=== PATIENT | male | born 1965 | race Caucasian/White ===

== ENCOUNTER 2017-03-01 11:48 | Emergency (ER) | payer OTHER ==
[~2017-03-01] VITALS: Ht 180.3 cm; Wt 81.7 kg
[~2017-03-01 11:48] MED LIST: DRON5 PO; HYDACE5 PO; HYDMOR4 PO; MORP50ER PO; NAPR500 PO; ONDA8ODT MM; PANT40 PO; POLY17UD PO; PREG150 PO; PROM25 PO
[2017-03-01 12:18] LABS: BASOPHILS ABSOLUTE AUTO 0.03 K/mm3 (0.00-0.23); BASOPHILS PERCENT AUTO 0 % (0-2); EOSINOPHILS ABSOLUTE AUTO 0.12 K/mm3 (0.00-0.68); EOSINOPHILS PERCENT AUTO 1 % (0-6); Hematocrit 38.3 % (37.0-53.0); Hemoglobin 13.1 g/dL (13.5-17.5); IMMATURE GRAN ABSOLUTE AUTO 0.07 K/mm3 (0.00-0.10); IMMATURE GRAN PERCENT AUTO 1 % (0-1); LYMPHOCYTES ABSOLUTE AUTO 2.45 K/mm3 (0.84-5.20); LYMPHOCYTES PERCENT AUTO 24 % (21-46); MONOCYTES ABSOLUTE AUTO 0.55 K/mm3 (0.16-1.47); MONOCYTES PERCENT AUTO 5 % (4-13); Mean Corpuscular HGB 31.3 pg (26.0-34.0); Mean Corpuscular HGB Conc 34.2 g/dL (31.5-36.5); Mean Corpuscular Volume 91 fL (80-100); NEUTROPHILS ABSOLUTE AUTO 6.93 K/mm3 (1.96-9.15); NEUTROPHILS PERCENT AUTO 68 % (41-73); Platelet Count 326 K/mm3 (150-400); RDW Coefficient Variation 13.6 % (11.7-14.2); RDW Standard Deviation 45.3 fL (35.1-46.3); Red Blood Cell Count 4.19 M/mm3 (4.30-5.90); White Blood Cell Count 10.15 K/mm3 (4.00-11.30)
[2017-03-01 12:40] LABS: Alanine Aminotransfer (ALT/SGP 31 U/L (12-78); Albumin, Blood 3.7 g/dL (3.4-5.0); Albumin/Globulin Ratio 1.1 (0.8-1.8); Alk Phos 100 U/L (50-136); Anion Gap 7 mmol/L (6-16); Aspartate Aminotrans (AST/SGOT 23 U/L (12-37); Bilirubin, Total 0.2 mg/dL (0.1-1.0); Blood Urea Nitrogen 19 mg/dL (8-24); Bun/Creatinine Ratio 27.7 (12.0-20.0); CO2, Blood 24 mmol/L (21-32); Calcium, Blood 8.7 mg/dL (8.5-10.1); Chloride, Blood 107 mmol/L (98-108); Creatinine, Blood 0.69 mg/dL (0.60-1.20); Globulin, Blood 3.4 g/dL (2.2-4.0); Glomerular Filtration Rate >60 (60-); Glucose, Blood 102 mg/dL (70-99); Potassium, Blood 3.8 mmol/L (3.5-5.5); Sodium, Blood 138 mmol/L (136-145); Total Protein, Blood 7.1 g/dL (6.4-8.2); Troponin I <0.015 ng/mL (0.000-0.040)
[2017-09-30] MEDS ORDERED: Omeprazole20 M1 PO (10:46)
== END 2017-03-01 14:52 | disposition home or self-care (01) ==
LOC: ER 11:48
PROVIDERS: Physician Assistant
DX: R07.2 Precordial pain (principal); F17.200 Nicotine dependence, unspecified, uncomplicated
CPT/HCPCS: 71046; 80053; 84484; 85025; 93005; 93010; 96374; 96375; 99284; J2270; J2405

== ENCOUNTER → 2017-03-03 | Outpatient (CLI) | payer OTHER ==
[~2017-03-03] MED LIST changes: +Omeprazole20 M1 PO
[2017-03-03 20:35] LABS: BASOPHILS ABSOLUTE AUTO 0.02 K/mm3 (0.00-0.23); BASOPHILS PERCENT AUTO 0 % (0-2); EOSINOPHILS ABSOLUTE AUTO 0.21 K/mm3 (0.00-0.68); EOSINOPHILS PERCENT AUTO 3 % (0-6); Hematocrit 40.4 % (37.0-53.0); Hemoglobin 13.8 g/dL (13.5-17.5); IMMATURE GRAN ABSOLUTE AUTO 0.06 K/mm3 (0.00-0.10); IMMATURE GRAN PERCENT AUTO 1 % (0-1); LYMPHOCYTES ABSOLUTE AUTO 2.39 K/mm3 (0.84-5.20); LYMPHOCYTES PERCENT AUTO 38 % (21-46); MONOCYTES ABSOLUTE AUTO 0.43 K/mm3 (0.16-1.47); MONOCYTES PERCENT AUTO 7 % (4-13); Mean Corpuscular HGB 31.4 pg (26.0-34.0); Mean Corpuscular HGB Conc 34.2 g/dL (31.5-36.5); Mean Corpuscular Volume 92 fL (80-100); Mean Platelet Volume 9.3 fL (9.1-12.4); NEUTROPHILS ABSOLUTE AUTO 3.14 K/mm3 (1.96-9.15); NEUTROPHILS PERCENT AUTO 50 % (41-73); Platelet Count 350 K/mm3 (150-400); RDW Coefficient Variation 13.8 % (11.7-14.2); RDW Standard Deviation 46.4 fL (35.1-46.3); White Blood Cell Count 6.25 K/mm3 (4.00-11.30)
[2017-03-03 21:22] LABS: Alanine Aminotransfer (ALT/SGP 35 U/L (12-78); Albumin, Blood 3.8 g/dL (3.4-5.0); Albumin/Globulin Ratio 1.1 (0.8-1.8); Alk Phos 75 U/L (50-136); Anion Gap 13 mmol/L (6-16); Aspartate Aminotrans (AST/SGOT 23 U/L (12-37); Bilirubin, Total 0.2 mg/dL (0.1-1.0); Blood Urea Nitrogen 15 mg/dL (8-24); Bun/Creatinine Ratio 18.7 (12.0-20.0); CO2, Blood 22 mmol/L (21-32); CPK Creatine Kinase 182 U/L (39-308); Calcium, Blood 8.4 mg/dL (8.5-10.1); Chloride, Blood 108 mmol/L (98-108); Cholesterol 195 mg/dL (50-200); Creatine Kinase MB 2.8 ng/mL (0.0-3.6); Creatine Kinase MB Index 1.5 (0.0-4.0); Globulin, Blood 3.5 g/dL (2.2-4.0); Glomerular Filtration Rate >60 (60-); Glucose, Blood 105 mg/dL (70-99); HDL Cholesterol 98 mg/dL (>39); LDL/HDL RATIO 0.5; Low Density Lipoprotein Chol 50 mg/dL (0-110); Potassium, Blood 3.9 mmol/L (3.5-5.5); Sodium, Blood 143 mmol/L (136-145); Total Protein, Blood 7.3 g/dL (6.4-8.2); Triglycerides 234 mg/dL (30-160); Troponin I <0.015 ng/mL (0.000-0.040); Very Low Density Lipoprot Chol 46 mg/dL (6-32)
== END | disposition home or self-care (01) ==
LOC: LAB 17:15
PROVIDERS: Nurse Practitioner Family
DX: E78.5 Hyperlipidemia, unspecified (principal); R07.9 Chest pain, unspecified
CPT/HCPCS: 80053; 80061; 82550; 82553; 84484; 85025

== ENCOUNTER 2017-10-03 08:59 | Day surgery (SDC) | payer OTHER ==
[~2017-10-03] VITALS: Ht 177.8 cm; Wt 77.1 kg
== END 2017-10-03 11:00 | disposition home or self-care (01) ==
LOC: ORSCMMR 08:59 → ORD 10:00 → ORSCMMR 11:00
PROVIDERS: Internal Medicine Gastroenterology
PROC: 0DB98ZX Excision of Duodenum, Via Natural or Artificial Opening Endoscopic, Diagnostic (ICD-10-PCS; principal; 2017-10-03 10:00)
PROC: 0DB48ZX Excision of Esophagogastric Junction, Via Natural or Artificial Opening Endoscopic, Diagnostic (ICD-10-PCS; principal; 2017-10-03 10:00)
PROC: 0DB68ZX Excision of Stomach, Via Natural or Artificial Opening Endoscopic, Diagnostic (ICD-10-PCS; principal; 2017-10-03 10:00)
PROC: 0DB58ZX Excision of Esophagus, Via Natural or Artificial Opening Endoscopic, Diagnostic (ICD-10-PCS; principal; 2017-10-03 10:00)
DX: R11.2 Nausea with vomiting, unspecified (principal); K21.9 Gastro-esophageal reflux disease without esophagitis; F17.210 Nicotine dependence, cigarettes, uncomplicated
CPT/HCPCS: 88305; 88342; J2250; J7030

== ENCOUNTER → 2018-07-06 | Outpatient (CLI) | payer OTHER ==
[2018-07-06 19:27] LABS: Campylobacter Sp Not Detected (NOT DETECT)
[2018-07-06 19:28] LABS: Adenovirus F 40/41 Not Detected (NOT DETECT); Astrovirus Not Detected (NOT DETECT); Cryptosporidium Not Detected (NOT DETECT); Cyclospora Cayetanensis Not Detected (NOT DETECT); E. Coli O157 Not Detected (NOT DETECT); Entamoeba Histolytica Not Detected (NOT DETECT); Enteroaggregative E. coli-EAEC Not Detected (NOT DETECT); Enteropathogenic E. coli-EPEC Not Detected (NOT DETECT); Enterotoxigenic E. coli-ETEC Not Detected (NOT DETECT); Giardia Lamblia Not Detected (NOT DETECT); Norovirus GI/GII Not Detected (NOT DETECT); Plesiomonas Shigelloides Not Detected (NOT DETECT); Rotavirus A Not Detected (NOT DETECT); Salmonella Sp Not Detected (NOT DETECT); Sapovirus Not Detected (NOT DETECT); Shiga Toxin-prod E. coli-STEC Not Detected (NOT DETECT); Shigella/Enteroin E. coli-EIEC Not Detected (NOT DETECT); Vibrio Cholerae Not Detected (NOT DETECT); Vibrio Sp Not Detected (NOT DETECT); Yersinia Enterocolitica Not Detected (NOT DETECT)
== END | disposition home or self-care (01) ==
LOC: LAB 08:40 → LAB SHORT 08:40 → LAB FUT 07-04 16:15
PROVIDERS: Nurse Practitioner Family
DX: R10.9 Unspecified abdominal pain (principal)
CPT/HCPCS: 87507

== ENCOUNTER 2018-11-19 15:43 | Emergency (ER) | payer OTHER ==
[~2018-11-19] VITALS: Ht 180.3 cm; Wt 83.9 kg
[2018-11-19] MEDS ORDERED: Norco 5-325 Ta1 EACH PO (16:49)
== END 2018-11-19 16:57 | disposition home or self-care (01) ==
LOC: ER 15:43
DX: S20.211A Contusion of right front wall of thorax, initial encounter (principal); F17.210 Nicotine dependence, cigarettes, uncomplicated; V43.62XA Car passenger injured in collision with other type car in traffic accident, initial encounter
CPT/HCPCS: 71046; 99283-25

== ENCOUNTER → 2021-10-20 | Outpatient (CLI) | payer OTHER ==
[~2021-10-20] MED LIST changes: +Norco 5-325 Ta1 EACH PO
== END | disposition home or self-care (01) ==
LOC: LAB SHORT 12:00
DX: N39.0 Urinary tract infection, site not specified (principal)
CPT/HCPCS: 87086

== ENCOUNTER 2023-11-19 14:21 | Emergency (ER) | payer OTHER ==
[~2023-11-19] VITALS: Ht 180.3 cm; Wt 68.0 kg
[2023-11-19] MEDS ORDERED: HYDROmorphone HCl/Pf 1MG SYR IV ONE (15:05)
[2023-11-19] MEDS ORDERED: Propofol 10mg/ml 20 ml Vial (Procedural) IV SCH (15:10)
[2023-11-19] MEDS ORDERED: NS 1,000 ML IV ONE (15:15)
[2023-11-19 16:31] VITALS: BP 151/94
[2023-11-19] MEDS ORDERED: HYDR1TAB94 PO (16:32)
[2023-11-19] MEDS ORDERED: IBUP600 PO (16:32)
== END 2023-11-19 16:50 | disposition home or self-care (01) ==
LOC: ER 14:21
DX: S43.004A Unspecified dislocation of right shoulder joint, initial encounter (principal); F17.210 Nicotine dependence, cigarettes, uncomplicated; W01.0XXA Fall on same level from slipping, tripping and stumbling without subsequent striking against object, initial encounter
CPT/HCPCS: 23650; 73030; 73060; 96374-59; 99152; 99283-25; J1170; J2704; J7030

== ENCOUNTER 2023-11-26 19:53 | Emergency (ER) | payer OTHER ==
[~2023-11-26] VITALS: Ht 177.8 cm; Wt 79.4 kg
[~2023-11-26 19:53] MED LIST changes: +HYDR1TAB94 PO; +IBUP600 PO
[2023-11-26 20:03] VITALS: BP 172/141
[2023-11-26] MEDS ORDERED: FentaNYL Citrate 50 MCG/ML 2 ML Injection IM ONE (20:15)
== END 2023-11-26 21:00 | disposition home or self-care (01) ==
LOC: ER 19:53
DX: S43.004A Unspecified dislocation of right shoulder joint, initial encounter (principal); F17.210 Nicotine dependence, cigarettes, uncomplicated; X58.XXXA Exposure to other specified factors, initial encounter
CPT/HCPCS: 23650; 73030; 99283-25; J3010

== ENCOUNTER 2023-11-30 04:16 | Emergency (ER) | payer OTHER ==
[~2023-11-30] VITALS: Ht 172.7 cm; Wt 83.9 kg
[2023-11-30] MEDS ORDERED: FentaNYL Citrate 50 MCG/ML 2 ML Injection IV ONE (05:10)
[2023-11-30] MEDS ORDERED: HYDROmorphone HCl/Pf 1MG SYR IV ONE ×2 (05:30→05:55)
[2023-11-30] MEDS ORDERED: Propofol 10mg/ml 20 ml Vial (Procedural) IV SCH (05:55)
[2023-11-30] MEDS ORDERED: Ketorolac Tromethamine 30mg Vial IV ONE (06:30)
[2023-11-30 07:30] VITALS: BP 142/95
== END 2023-11-30 07:45 | disposition home or self-care (01) ==
LOC: ER 04:16
DX: M24.411 Recurrent dislocation, right shoulder (principal); F17.210 Nicotine dependence, cigarettes, uncomplicated; K21.9 Gastro-esophageal reflux disease without esophagitis; G43.909 Migraine, unspecified, not intractable, without status migrainosus
CPT/HCPCS: 23650; 73030; 96374-59; 96375-59; 99152; 99284-25; J1170; J1885; J2704; J3010

== ENCOUNTER 2023-12-04 07:04 | Emergency (ER) | payer OTHER ==
[~2023-12-04] VITALS: Ht 180.3 cm; Wt 79.4 kg
[2023-12-04] MEDS ORDERED: Morphine Sulfate 4 MG/1 ML Injection IV ONE (07:35)
[2023-12-04] MEDS ORDERED: Propofol 10mg/ml 20 ml Vial (Procedural) IV SCH (07:55)
[2023-12-04] MEDS ORDERED: LORazepam 2 MG/ML 1ML Injection IV ONE (07:55)
[2023-12-04] MEDS ORDERED: NS 1,000 ML IV SCH (08:00)
[2023-12-04] MEDS ORDERED: NS 1,000 ML IV ONE (08:08)
[2023-12-04 10:55] VITALS: BP 131/94
== END 2023-12-04 11:19 | disposition home or self-care (01) ==
LOC: ER 07:04
DX: M24.411 Recurrent dislocation, right shoulder (principal); F17.210 Nicotine dependence, cigarettes, uncomplicated; K21.9 Gastro-esophageal reflux disease without esophagitis; G43.909 Migraine, unspecified, not intractable, without status migrainosus; Z98.890 Other specified postprocedural states
CPT/HCPCS: 23650; 73020; 73030; 96374-59; 96375-59; 99284-25; J2060; J2270; J2704; J7030

== ENCOUNTER 2023-12-10 11:32 | Emergency (ER) | payer OTHER ==
[~2023-12-10] VITALS: Ht 180.3 cm; Wt 83.9 kg
[2023-12-10] MEDS ORDERED: Ketorolac Tromethamine 30mg Vial IV ONE (11:45)
[2023-12-10] MEDS ORDERED: Ondansetron HCl 2 MG / ML 2ML Vial IV ONE (11:45)
[2023-12-10] MEDS ORDERED: Morphine Sulfate 4 MG/1 ML Injection IV ONE (11:45)
[2023-12-10] MEDS ORDERED: Propofol 10mg/ml 20 ml Vial (Procedural) IV SCH (12:40)
[2023-12-10] MEDS ORDERED: HYDROmorphone HCl/Pf 1MG SYR IV ONE (13:20)
[2023-12-10] MEDS ORDERED: NS 1,000 ML IV ONE (13:55)
[2023-12-10] MEDS ORDERED: NS 1,000 ML IV SCH (14:20)
[2023-12-20] MEDS ORDERED: Percocet 5-3251 EACH PO (11:46)
== END 2023-12-10 14:48 | disposition home or self-care (01) ==
LOC: ER 11:32
DX: M24.411 Recurrent dislocation, right shoulder (principal)
CPT/HCPCS: 23650; 96374-59; 96375-59; 99284-25; J1170; J1171; J1265; J1885; J2270; J2405; J2704; J7030

== ENCOUNTER 2023-12-18 19:02 | Emergency (ER) | payer OTHER ==
[~2023-12-18] VITALS: Ht 180.3 cm; Wt 79.4 kg
[2023-12-18] MEDS ORDERED: NS 1,000 ML IV ONE (19:52)
[2023-12-18] MEDS ORDERED: propofoL 20 ML IV SCH (19:55)
[2023-12-18 20:30] VITALS: BP 151/93
== END 2023-12-18 20:35 | disposition home or self-care (01) ==
LOC: ER 19:02
DX: M24.411 Recurrent dislocation, right shoulder (principal); F17.210 Nicotine dependence, cigarettes, uncomplicated
CPT/HCPCS: 23650; 73030; 99152; 99284-25; J2704; J7030

== ENCOUNTER 2023-12-20 10:05 | Emergency (ER) | payer OTHER ==
[~2023-12-20] VITALS: Ht 180.3 cm; Wt 79.4 kg
[2023-12-20] MEDS ORDERED: HYDROmorphone HCl/Pf 1MG SYR ONE (10:06)
[2023-12-20] MEDS ORDERED: Propofol 10mg/ml 20 ml Vial (Procedural) IV SCH (10:15)
[2023-12-20] MEDS ORDERED: HYDROmorphone HCl/Pf 1MG SYR IV ONE (10:15)
[2023-12-20] MEDS ORDERED: NS 1,000 ML IV SCH (10:15)
[2023-12-20 11:00] VITALS: BP 130/80
[2023-12-20] MEDS ORDERED: Percocet 5-3251 EACH PO ×2 (11:46)
== END 2023-12-20 12:10 | disposition home or self-care (01) ==
LOC: ER 10:05
DX: S43.014A Anterior dislocation of right humerus, initial encounter (principal); X58.XXXA Exposure to other specified factors, initial encounter; F17.210 Nicotine dependence, cigarettes, uncomplicated
CPT/HCPCS: 23655; 73020; 73030; 96374; 99152; 99284-25; J1171; J2704; J7030